=== PATIENT | male | born 2000 | race African-American/Black ===

== ENCOUNTER 2022-10-05 06:04 | Day surgery (SDC) | payer MEDICAID ==
[~2022-10-05] VITALS: Ht 177.8 cm; Wt 73.9 kg
[2022-10-05] MEDS ORDERED: ceFAZolin 1GM/50ML 100 ML IV ONE (06:39)
[2022-10-05] MEDS ORDERED: BUPIVACAINE 0.5% P/F INJ 10 ML VIAL ONE ×2 (06:50→07:33)
[2022-10-05] MEDS ORDERED: DexAMETHasone SOD PHOS 4 MG/1ML SDV INJ ONE (06:51)
[2022-10-05] MEDS ORDERED: LIDOCAINE 1% (LOCAL ANESTH.) PF 5ml SDV ONE (06:56)
[2022-10-05] MEDS ORDERED: HYDROmorphone HCL 2 MG/ML VL/or syr IV PRN (07:00)
[2022-10-05] MEDS ORDERED: METOCLOPRAMIDE HCL 5MG/ml INJ 2ml VIAL IV PRN (07:00)
[2022-10-05] MEDS ORDERED: MORPHINE SULFATE 4 MG/ML SYR/VIAL IV PRN (07:00)
[2022-10-05] MEDS ORDERED: KETOROLAC TROMETH 30 MG/ML 1ML VIAL IV ONE (07:00)
[2022-10-05] MEDS ORDERED: SUCCINYLCHOLINE CHLORIDE 20 MG/ML 10ML VIAL IV ONE (07:01)
[2022-10-05] MEDS ORDERED: SODIUM CHLORIDE LOCK 10 ML ONE (07:07)
[2022-10-05] MEDS ORDERED: DexAMETHasone SOD PHOS 10MG/1ML VIAL INJ ONE (07:07)
[2022-10-05] MEDS ORDERED: MIDAZOLAM HCL 2MG/2ML 2ml VIAL (1mg/ml) ONE (07:07)
[2022-10-05] MEDS ORDERED: fentaNYL CITRATE 100 MCG/2 ML VL ONE (07:07)
[2022-10-05] MEDS ORDERED: ONDANSETRON HCL 4 MG/2 ML VIAL ONE (07:07)
[2022-10-05] MEDS ORDERED: PROPOFOL 10 MG/ML 20 ML IV ONE (07:07)
[2022-10-05] MEDS: HYDROmorphone HCL 2 MG/ML VL/or syr IV PRN ×2 (08:30→08:50)
[2022-10-05 09:10] VITALS: BP 126/65
== END 2022-10-05 09:32 | disposition home or self-care (01) ==
LOC: SUR 06:04
PROVIDERS: ATTEND Podiatrist Foot & Ankle Surgery
DX: D16.31 Benign neoplasm of short bones of right lower limb (principal)
CPT/HCPCS: 28108; 73620; 88305; J0330; J0690; J1100; J1170; J2250; J2405; J2704; J3010; J3490; U0003